=== PATIENT | female | born 1950 | race Caucasian/White ===

== ENCOUNTER 2018-11-08 05:32 | Inpatient (IN) | payer MEDICARE ==
[~2018-11-08 05:32] MED LIST: Buffered Lidocaine 1% SYRIN* 1 ML/SYRINGE INTRADERM ONE; Tranexamic Acid 1,000 MG in NS 0.9% 50 ML* (outpatient use) IV SCH
--- OUTSIDE RECORDS SUMMARY | 2018-11-08 05:36 | XMS REPORT | Continuity of Care Document ---
:1950 External Reference #:[id number] Author Name Mariann Rodriguez Care Team Providers Name Role Phone Lefty Summers MD Primary Care Physician Unavailable Payers Date Identification Numbers Payment Provider Subscriber Expires: 2017 Policy Number: [id number] [employer] Oliver Mandujano PayID: [id number] [address] [address] [place] [address] Effective: 2017 Policy Number: [id number] [employer] Lynsey Mandujano PayID: [id number] [address] [place] [address] Advance Directives Description No Information Available Problems Date Description Provider Status Onset: 06/15/2013 Coronary arteriosclerosis Fred Hernandez M.D., [facility], Active [facility] Onset: 07/20/2013 Mixed hyperlipidemia Fred Hernandez M.D., [facility], Active [facility] Onset: 07/20/2013 Benign essential hypertension [facility] Onset: 07/20/2013 Dyspnea Fred Hernandez M.D., [facility], Active [facility] Onset: 07/20/2013 Chronic ischemic heart disease Fred Hernandez M.D., [facility], Active [facility] Onset: 06/15/2013 Essential hypertension Fred Hernandez M.D., [facility], Active [facility] Onset: 06/15/2013 Difficulty breathing Fred Hernandez M.D., [facility], Active [facility] Family History Date Family Member(s) Observation Comments General Heart Disease General Diabetes Mother Diabetes Mother Hypertension Mother dementia First Brother Diabetes Second Brother Diabetes Maternal Grandmother dementia Social History Type Date Description Comments Sex Unknown Lives With Occupation Retired ETOH Use Denies alcohol use Tobacco Use Start: Unknown Patient has never smoked Smoking Status Reviewed: 10/20/18 Patient has never smoked Exercise Type/Frequency Does not exercise Allergies, Adverse Reactions, Alerts Date Description Reaction Status Severity Comments 06/15/2013 Penicillin throat swell Active 06/15/2013 Erythromycin GI upset Active 06/15/2013 Prednisone suicidal Active 08/31/2013 Sulfa burning sesation, upsets stomach Active 08/31/2013 Latex rash Active Medications Medication Date Status Form Strength Qnty SIG Indications Ordering Provider Rosuvastatin 10/20 Active Tablets 20mg 90tab 1 by mouth Edwar Jenkins Calcium s every day Haney, DO FACC Butalbital-Aspir 10/10 Active Capsules 50-325-40 take 1 as Edwar Jenkins in-Caffeine /2018 mg needed for Haney, migraine, DO FACC maxi Furosemide 06/15 Active Tablets 20mg 90tab 1 tablet 786. s alternating Stefek, day with 1/2 M.D., tablet. ( Pt FAC, has old [facility] medication but not using ) Aspirin Active Tablets DR 81mg 1 po qd Unknown /0000 Nexium Active Capsules 40mg 90cap 1 po qd Unknown /0000 DR wallis Zyrtec Allergy Active Capsules 10mg 30cap 1 po qd Unknown /0000 s Vitamin E-400 Active Capsules 400Unit 1 po qd Unknown /0000 Stool Softener Active Capsules 60cap 1 po qd Unknown /0000 s Nitrostat Active Tablets 0.4mg 25tab one sl q5min Unknown /0000 Sub s up to 3 doses prn ( Pt has old medication but not using ) Ventolin HFA Active Aerosol 108(90Bas 1unit 2 puffs po Unknown /0000 e) s qid prn mcg/Act Atenolol Active 25mg One po daily Unknown /0000 Alprazolam Active Tablets 0.25mg 1/2 tab po Unknown /0000 qd Symbicort Active Aerosol 160-4.5mc Inhale 2 Unknown /0000 g/Act Puffs By Mouth Twice Daily Oxycodone-Acetam Active Tablets 5-325mg Take 1 Or 2 Unknown inophen /0000 Tablets By Mouth Every 6 Hours as Needed For Pain Clobetasol Active Cream 0.05% apply to Unknown Propionate /0000 affected area every day as needed Pseudoephedrine Active Tablets ER 120mg 1 by mouth Unknown HCL ER /0000 12HR twice a day Dilt-XR 05/17 Hx Caps ER 180mg 30cap 1 tab by 24HR s mouth every Stefek, - day M.D., 06/15 [facility], [facility] Pravastatin Hx Tablets 20mg 90tab 1 tablet by Unknown Sodium /0000 s mouth once - daily at 09/18 bedtime Fiorinal Hx Capsules 50-325-40 60cap prn Unknown /0000 mg s - 09/18 Xopenex Hx Nebulizer 1Box as needed Unknown / - 09/18 Omeprazole Hx Capsules 40mg Unknown /0000 DR - 07/19 Rosuvastatin Hx Tablets 10mg Take 1 Unknown Calcium /0000 Tablet By - Mouth Every Levofloxacin Hx Tablets 250mg 5tabs as needed Unknown /0000 - 10/11 Medications Administered in Office Medication Date Status Form Strength Qnty SIG Indications Ordering Provider Depomedrol Administered Injection Dirk Aleyda, 40MG 019 M.D. Celestone 3 mg Administered Injection Layton and 3mg 018 MD Edwin Depomedrol Administered Injection Dirk Aleyda, 80MG 015 M.D. Immunizations Description No Information Available Vital Signs Date Vital Result Comment 10/20/2018 10:45am Height 60 inches 5'0" Weight 170.00 lb w/o shoes Heart Rate 75 /min BP Systolic 160 mmHg rue BP Diastolic 85 mmHg rue BP Systolic Sitting 150 mmHg Lue BP Diastolic Sitting 80 mmHg Lue BP Systolic Standing 145 mmHg rue Reg Cuff BP Diastolic Standing 80 mmHg rue Reg Cuff O2 % BldC Oximetry 97 % BMI (Body Mass Index) 33.2 kg/m2 10/10/2018 10:55am Height 60 inches 5'0" Weight 175.00 lb Heart Rate 89 /min BP Systolic 104 mmHg BP Diastolic 78 mmHg Respiratory Rate 18 /min Body Temperature 98.6 F Pain Level 2 BMI (Body Mass Index) 34.2 kg/m2 09/19/2018 1:32pm Height 60 inches 5'0" Weight 175.00 lb BP Systolic 128 mmHg BP Diastolic 80 mmHg Respiratory Rate 20 /min Body Temperature 97.8 F Pain Level 10 BMI (Body Mass Index) 34.2 kg/m2 12/07/2017 1:34pm Height 60 inches 5'0" Weight 175.00 lb Heart Rate 76 /min BP Systolic 118 mmHg BP Diastolic 62 mmHg Respiratory Rate 12 /min Body Temperature 98.5 F Pain Level 7 BMI (Body Mass Index) 34.2 kg/m2 05/08/2015 8:19am Height 60 inches 5'0" Weight 160.00 lb Pain Level 0 BMI (Body Mass Index) 31.2 kg/m2 04/08/2015 8:14am Height 60 inches 5'0" Weight 160.00 lb Heart Rate 62 /min BP Systolic 158 mmHg BP Diastolic 76 mmHg BMI (Body Mass Index) 31.2 kg/m2 08/31/2013 8:45am Height 60 inches 5'0" Weight 168.00 lb with shoes, no change from 07/20/13 Heart Rate 73 /min BP Systolic Sitting 144 mmHg Lf arm, reg cuff BP Diastolic Sitting 86 mmHg Lf arm, reg cuff BP Systolic Standing 140 mmHg BP Diastolic Standing 86 mmHg Respiratory Rate 16 /min BMI (Body Mass Index) 32.8 kg/m2 07/20/2013 3:31pm Height 60 inches 5'0" Weight 168.00 lb Heart Rate 72 /min BP Systolic Sitting 118 mmHg LA reg cuff BP Diastolic Sitting 74 mmHg LA reg cuff BP Systolic Standing 122 mmHg LA BP Diastolic Standing 76 mmHg LA Respiratory Rate 18 /min BMI (Body Mass Index) 32.8 kg/m2 06/15/2013 4:01pm Height 60 inches 5'0" Weight 167.00 lb Heart Rate 80 /min BP Systolic Sitting 138 mmHg Ra reg cuff BP Diastolic Sitting 84 mmHg Ra reg cuff BP Systolic Standing 132 mmHg Ra BP Diastolic Standing 78 mmHg Ra BMI (Body Mass Index) 32.6 kg/m2 Results Test Date Facility Test Result H/L Range Note Laboratory test 10/20/2018 [facility] B-Type <pending> finding [address] [place] [address] Peptide BNP [phone] Procedures Date Code Description Status 10/20/2018 37907 EKG Tracing & Interpretation Completed 09/19/2018 16355 Inject/Drain Joint/Bursa Major W/O US Completed 12/07/2017 74548 Inject Tendon Sheath Or Ligament Aponeurosis Eg Plantar Completed Fascia 04/08/2015 76411 Inject/Drain Joint/Bursa Major W/O US Completed 05/03/2013 21660 Treadmill Interp/Report Only Completed 05/03/2013 12157 Stress Test Supervsn W/Out I/R Completed 04/12/2013 34557 ECHO Transthoracic, Real-Time 2D With Doppler And Color Completed Flow 03/14/2013 73388 Left Heart Cath. Incl S/I Coronaries, Angio S/I V Gram If Completed Done 03/14/2013 57216 Treadmill Interp/Report Only Completed 03/14/2013 88173 Stress Test Supervsn W/Out I/R Completed 03/14/2013 68301 EKG, Interpretation Only Completed 08/15/2007 63797 ECHO/Stress Completed 08/15/2007 26274 ECHO/Stress Completed 08/15/2007 66547 Stress Test Completed 08/15/2007 56927 Stress Test Completed 08/15/2007 30149 Stress Test Completed Encounters Type Date Location Provider Dx Diagnosis Office Visit 10/10/2018 [facility] Manyard, M17.11 Unilateral primary 10:30a [facility] osteoarthritis, right C.M.A. knee Office Visit 09/19/2018 [facility] Maynard, M17.11 Unilateral primary 1:30p [facility] osteoarthritis, right C.M.A. knee Office Visit 12/07/2017 [facility] Pineda M65.311 Trigger thumb, right 1:15p [facility] thumb C.M.A. Office Visit 05/08/2015 [facility]nard, 715.96 Osteoarthrosis Unspec 8:15a [facility] Ornelas Or Localized C.M.A. Lower Leg Office Visit 04/08/2015 [facility], 836.0 Dislocation Knee Tear 8:00a [facility] Of Medial Cartilage C.M.A. Or Meniscus Curren 715.36 Osteoarthrosis Localzd Not Spec Prime Or 2Ndy Lower Leg Office Visit 08/31/2013 8:45a [facility] Fred Hernandez, 414.9 Ischemic Heart Of [facility] AT [facility] M.D., FAC, Disease Chronic [facility] Unspec 401.1 Hypertension Benign 272.2 Hyperlipidemia Mixed Office Visit 07/20/2013 3:15p [facility] Fred Hernandez, 414.9 Ischemic Heart Of [facility] M.D., FAC, Disease Chronic [facility] Unspec 786.05 Shortness Of Breath 401.1 Hypertension Benign 272.2 Hyperlipidemia Mixed Office Visit 06/15/2013 3:45p [place] Fred Hernandez, 786.09 Dyspnea & Cardiology Of M.D., FACC, Respiratory [facility] Abnormalities Other 401.9 Hypertension Unspec 414.01 Coronary Atherosclerosis [place] Office Visit 05/17/2013 4:00p [place] Fred Hernandez, 786.09 Dyspnea & Cardiology Of M.D., FAC, Respiratory [facility] AT [facility] Abnormalities Other 401.9 Hypertension Unspec Office Visit 04/24/2013 11:45a [place] Fred Hernandez, 786.09 Dyspnea & Cardiology Of M.D., FAC, Respiratory [facility] AT [facility] Abnormalities Other Office Visit 03/22/2013 3:15p [place] Fred Hernandez, 401.9 Hypertension Unspec Cardiology Of M.D., FACC, [facility] AT [facility] 493.90 Asthma Unspec W/O Status Asthmaticus Office Visit 2013 8:42a [facility] Earnest Hurst, 786.50 [facility] M.DSun Unspec Hospitalists 401.9 Hypertension Unspec 493.10 Asthma Intrinsic Unspecified Office Visit 03/15/2013 8:42a [facility] Earnest Hurst, 786.50 [facility],pc M.DSun Unspec Hospitalists 401.9 Hypertension Unspec 493.10 Asthma Intrinsic Unspecified Office Visit 03/14/2013 9:06a [facility] Arnie Funes 786.50 [facility] Guadalupe Unspec 786.09 Dyspnea & Respiratory Abnormalities Other 401.1 Hypertension Benign Office Visit 03/13/2013 8:41a [facility] Rodrigo Vásquez 786.50 [facility],pc N.P. Unspec Hospitalists 401.9 Hypertension Unspec 493.10 Asthma Intrinsic Unspecified Plan of Treatment Future Appointment(s):10/26/2018 10:15 am - Edwar Haney, DO FAC at [facility]11/08/2018 7:30 am - Idris Maynard M.D. at [facility].A.11/21/2018 9:15 am - Idris Maynard M.D. at [facility].10/20/2018 - Edwar Haney DO FACCI25.84 Coronary atherosclerosis due to calcified coronary lesionComments:Your most recent LDL (bad cholesterol) was 96. In someone with coronary artery disease, this shouldbe less than 70 at a maximum. I increased your rosuvastatin from 10 to 20 mg once a day. You can have refills and follow up blood work through Dr. Summers's office. Don't take any fiorcet for 24 hoursprior to the stress testFollow up:please schedule stress test with me on 10/26/2018 f/u PRNZ01.810 Encounter for preprocedural cardiovascular examinationNew Orders:Stress Test, Exercise Nuclear, Scheduled: 10/26/18R06.02 Shortness of breath
--- OUTSIDE RECORDS SUMMARY | 2018-11-08 05:37 | XMS REPORT | Continuity of Care Document ---
:1950 External Reference #:[id number] Author Name Ariadna Potts Care Team Providers Name Role Phone Lefty Summers MD Primary Care Physician Unavailable Payers Date Identification Numbers Payment Provider Subscriber Expires: 2017 Policy Number: [id number] [employer] Oliver Mandujano PayID: [id number] [address] [address] [place] [address] Effective: 2017 Policy Number: [id number] [employer] Lynsey Mandujano PayID: [id number] [address] [place] [address] Advance Directives Description No Information Available Problems Date Description Provider Status Onset: 06/15/2013 Coronary arteriosclerosis Fred Hernandez M.D., [facility], Active [facility] Onset: 07/20/2013 Mixed hyperlipidemia Fred Hernandez M.D., [facility], Active [facility] Onset: 07/20/2013 Benign essential hypertension Fred Hernandez M.D., [facility], Active [facility] Onset: 07/20/2013 Dyspnea Fred Hernandez M.D., [facility], Active [facility] Onset: 07/20/2013 Chronic ischemic heart disease Fred Hernandez M.D., [facility], Active [facility] Onset: 06/15/2013 Essential hypertension Fred Hernandez M.D., [facility], Active [facility] Onset: 06/15/2013 Difficulty breathing Fred Hernandez M.D., [facility], Active [facility] Family History Date Family Member(s) Observation Comments General Heart Disease General Diabetes Social History Type Date Description Comments Sex Unknown Lives With Occupation Retired ETOH Use Denies alcohol use Tobacco Use Start: Unknown Patient has never smoked Smoking Status Reviewed: 10/10/18 Patient has never smoked Exercise Type/Frequency Does not exercise Allergies, Adverse Reactions, Alerts Date Description Reaction Status Severity Comments 06/15/2013 Penicillin Active 06/15/2013 Erythromycin Active 06/15/2013 Prednisone Active 08/31/2013 Sulfa burning sesation, upsets stomach Active 08/31/2013 Latex rash Active Medications Medication Date Status Form Strength Qnty SIG Indications Ordering Provider Furosemide 06/15/ Active Tablets 20mg 90tab 1 tablet 786.09 Fred 2012 s alternating , with 08/31 M.DSun, tablet. [facility], [facility] Aspirin / Active Tablets DR 81mg 1 po qd Unknown 0000 Nexium / Active Capsules DR 40mg 90cap 1 po qd Unknown 0000 s Zyrtec Allergy / Active Capsules 10mg 30cap 1 po qd Unknown 0000 s Vitamin E-400 / Active Capsules 400Unit 1 po qd Unknown 0000 Stool Softener / Active Capsules 60cap 1 po qd Unknown 0000 s Nitrostat / Active Tablets Sub 0.4mg 25tab one sl q5min Unknown 0000 s up to 3 doses prn Ventolin HFA / Active Aerosol 108(90Bas 1unit 2 puffs po Unknown 0000 e) s qid prn mcg/Act Atenolol / Active 25mg One po daily Unknown 0000 Alprazolam / Active Tablets 0.25mg 1/2 tab po Unknown 0000 qd Symbicort / Active Aerosol 160-4.5mc Inhale 2 Unknown 0000 g/Act Puffs By Mouth Twice Daily Oxycodone-Acet / Active Tablets 5-325mg Take 1 Or 2 Unknown aminophen 0000 Tablets By Mouth Every 6 Hours as Needed For Pain Rosuvastatin / Active Tablets 10mg Take 1 Unknown Calcium 0000 Tablet By Mouth Every Day Dilt-XR 05/17/ Hx Caps ER 180mg 30cap 1 tab by Fred 2012 - 24HR s mouth every Stefek, M.DSun, 2012 [facility], [facility] Pravastatin / Hx Tablets 20mg 90tab 1 tablet by Unknown Sodium 0000 - s mouth once 09/18/ daily at 2019 bedtime Fiorinal / Hx Capsules 50-325-40 60cap prn Unknown 0000 - mg s 2018 Xopenex / Hx Nebulizer 1Box as needed Unknown - 2018 Omeprazole / Hx Capsules DR 40mg Unknown - 2012 Medications Administered in Office Medication Date Status Form Strength Qnty SIG Indications Ordering Provider Depomedrol Administered Injection Dirk Aleyda, 40MG 019 M.D. Celestone 3 mg Administered Injection Layton and 3mg 018 MD Ayala Pineda Administered Injection Dirk Aleyda, 80MG 015 M.D. Immunizations Description No Information Available Vital Signs Date Vital Result Comment 10/10/2018 10:55am Height 60 inches 5'0" Weight [...] BMI (Body Mass Index) 32.6 kg/m2 Results Description No Information Available Procedures Date Code Description Status 09/19/201811927 Inject/Drain Joint/Bursa Major W/O US Completed 12/07/2017 19963 Inject Tendon Sheath Or Ligament Aponeurosis Eg Plantar Completed Fascia 04/08/201534124 Inject/Drain Joint/Bursa Major W/O US Completed 05/03/2013 89679 Treadmill Interp/Report Only Completed 05/03/2013 90836 Stress Test Supervsn W/Out I/R Completed 04/12/2013 07988 ECHO Transthoracic, Real-Time 2D With Doppler And Color Completed Flow 03/14/2013 28414 Left Heart Cath. Incl S/I Coronaries, Angio S/I V Gram If Completed Done 03/14/2013 38070 Treadmill Interp/Report Only Completed 03/14/2013 75498 Stress Test Supervsn W/Out I/R Completed 03/14/2013 22850 EKG, Interpretation Only Completed 08/15/2007 77244 ECHO/Stress Completed 08/15/2007 16420 ECHO/Stress Completed 08/15/2007 68221 Stress Test Completed 08/15/2007 73711 Stress Test Completed 08/15/2007 03888 Stress Test Completed Encounters Type Date Location Provider Dx Diagnosis Office Visit 09/19/2018 [facility] Maynard, M17.11 Unilateral primary 1:30p [facility] M.D. osteoarthritis, right C.M.A. knee Office Visit 12/07/2017 [facility] Pineda, M65.311 Trigger thumb, right 1:15p [facility] C.M.A. Office Visit 05/08/2015 [facility] Maynard, 715.96 Osteoarthrosis Unspec 8:15a [facility] Genlzd Or Localized C.M.A. Lower Leg Office Visit 04/08/2015 [facility] Maynard, 836.0 Dislocation Knee Tear 8:00a [facility] Of Medial Cartilage C.M.A. Or Meniscus Curren 715.36 Osteoarthrosis Localzd Not Spec Prime Or 2Ndy Lower Leg Office Visit 08/31/2013 8:45a [facility] Fred Hernandez, 414.[address] [facility] M.Yolis, [facility], Disease Chronic [facility] Unspec 401.1 Hypertension Benign 272.2 Hyperlipidemia Mixed Office Visit 07/20/2013 3:15p [facility] Fred Hernandez, 414.[address] [facility], [facility], Disease Chronic [facility] Unspec 786.05 Shortness Of Breath 401.1 Hypertension Benign 272.2 Hyperlipidemia Mixed Office Visit 06/15/2013 3:45p Gabe Hernandez, 786.09 Dyspnea & Card[facility], FAC, Respiratory [facility] Abnormalities Other 401.9 Hypertension Unspec 414.01 Coronary Atherosclerosis [place] [facility] [place] Office Visit 05/17/2013 4:00p Gabe Hernandez, 786.09 Dyspnea & Cardiology Of [facility], FAC, Respiratory [facility] Abnormalities Other 401.9 Hypertension Unspec Office Visit 04/24/2013 11:45a Gabe Hernandez 786.09 Dyspnea & Card[facility], FAC, Respiratory [facility] Abnormalities Other Office Visit 03/22/2013 3:15p [facility] Hernandez, 401.9 Hypertension Unspec [facility], FAC, Associate Music Professor AT [facility] 493.90 Asthma Unspec W/O Status Asthmaticus Office Visit 2013 8:42a [facility] Earnest Hurst, 786.50 [facility],austen [place] Unspec Hospitalists 401.9 Hypertension Unspec 493.10 Asthma Intrinsic Unspecified Office Visit 03/15/2013 8:42a [facility] Earnest Hurst, 786.50 [facility]oc,austen [place] Unspec Hospitalists 401.9 Hypertension Unspec 493.10 Asthma Intrinsic Unspecified Office Visit 03/14/2013 9:06a [facility] Arnie Funes 786.50 [facility] Guadalupe Unspec 786.09 Dyspnea & Respiratory Abnormalities Other 401.1 Hypertension Benign Office Visit 03/13/2013 8:41a [facility] Rodrigo [place], 786.50 [facility] Chest Assoc,pc N.P. Unspec Hospitalists 401.9 Hypertension Unspec 493.10 Asthma Intrinsic Unspecified Plan of Treatment Future Appointment(s):11/08/2018 7:30 am - Idris Maynard M.D. at [facility]/21/2018 9:15 am - Idris Maynard M.D. at [facility]10/10/2018 - Idris Maynard M.D.M17.11 Unilateral primary osteoarthritis, right knee
[2018-11-08] MEDS ORDERED: Lactated Ringers 1000 ML Bag* 1,000 ML IV SCH (06:00)
[2018-11-08] MEDS ORDERED: Clindamycin 900 MG/D5W BAG(*) 900 MG/50 ML BAG IVPB ONE (06:14)
[2018-11-08 06:47] LABS: Urine Appearance Clear; Urine Bacteria Absent (Absent); Urine Bilirubin Negative (Negative); Urine Blood Negative (Negative); Urine Color Yellow; Urine Glucose Negative (Negative); Urine Ketones Negative (Negative); Urine Nitrite Negative (Negative); Urine Protein Negative (Negative); Urine Red Blood Cell Absent (Absent); Urine Specific Gravity 1.014 (1.010-1.030); Urine Urobilinogen Negative (Negative); Urine White Blood Cell Trace(0-5/hpf) (Absent)
[2018-11-08] MEDS ORDERED: Bupivacaine 0.5% W/EPI SDV* 30 ML VIAL ONE (07:10)
[2018-11-08] MEDS ORDERED: Midazolam* 1 MG/ML 5 ML VIAL (5 MG) ONE (07:21)
[2018-11-08] MEDS ORDERED: fentaNYL* 50 MCG/ML 2 ML VIAL (100 MCG VIAL) ONE (07:47)
[2018-11-08] MEDS ORDERED: Propofol* 10 MG/ML 20 ML BTL ONE (08:16)
[2018-11-08] MEDS ORDERED: DiMENhydriNATE IV* 50 MG/ML VIAL IV PUSH PRN (08:45)
[2018-11-08] MEDS ORDERED: fentaNYL* 50 MCG/ML 2 ML VIAL (100 MCG VIAL) IV PRN (08:45)
[2018-11-08] MEDS ORDERED: HYDROmorphone INJ1* 1 MG/ML SYRINGE IV PRN (08:45)
[2018-11-08] MEDS ORDERED: Naloxone* 0.4 MG/ML 1 ML VIAL IV PRN (08:45)
[2018-11-08] MEDS ORDERED: oxyCODONE TAB* 5 MG TAB PO PRN ×2 (08:45→23:00)
[2018-11-08] MEDS ORDERED: Ondansetron INJ* 2 MG/ML VIAL IV PRN (08:45)
[2018-11-08] MEDS ORDERED: Scopolamine 1.5 mg* PATCH TRANSDERM PRN (08:45)
[2018-11-08] MEDS ORDERED: Ketorolac INJ* 30 MG/ML 1 ML VIAL ONE (10:12)
[2018-11-08] MEDS ORDERED: Midazolam* 1 MG/ML 2 ML VIAL (2 MG) ONE (10:20)
[2018-11-08] MEDS ORDERED: Cyclobenzaprine TAB* 10 MG PO PRN (10:55)
[2018-11-08] MEDS ORDERED: diPHENhydraMINE IV* 50 MG/ML 1 ml VIAL (BENADRYL) IV PRN (10:55)
[2018-11-08] MEDS ORDERED: diPHENhydraMINE PO* 25 MG PO PRN (10:55)
[2018-11-08] MEDS ORDERED: Ondansetron ODT TAB* 4 MG PO PRN (10:55)
[2018-11-08] MEDS ORDERED: Magnesium Hydroxide LIQ* 30 ML UDC PO PRN (10:55)
[2018-11-08] MEDS ORDERED: Docusate CAP* 100 MG PO PRN (10:55)
[2018-11-08] MEDS ORDERED: Clobetasol 0.05% OINT* 30 GM TUBE TOPICAL PRN (11:03)
[2018-11-08] MEDS ORDERED: Butalb/Acetamin/Caff TAB* 1 TAB PO PRN (11:03)
--- NOTE | 2018-11-08 13:23 | OP ---
CC: Dr. Summers * DATE OF OPERATION: 11/08/18 - ROOM #341 DATE OF : 52 SURGICAL CARE: Right knee. SURGEON: Idris Maynard MD. ASSISTANTS: Dr. Palma and Tri Jennings, instructor adjunct surgical technician. ANESTHESIOLOGIST: Cruzito Barrera MD. ANESTHESIA: Right adductor canal block and spinal anesthetic with IV sedation. PRE-OP DIAGNOSIS: Severe arthritis of the right knee with varus malalignment. POST-OP DIAGNOSIS: Severe arthritis of the right knee with varus malalignment. OPERATIVE PROCEDURE: Right total knee replacement. COMPONENTS UTILIZED: Glenna Persona knee all components cemented. A size 4 femur, a size 32 patella, and a size C tibia with a 10 articular surface. There is an extension on the tibial component for stability. COMPLICATIONS: There were no complications. DRAINS: 2 drains, right knee at the end of the case. ESTIMATED BLOOD LOSS: 200 mL. REPLACEMENT: Crystalloid fluids. OPERATIVE INDICATION: Severe knee arthritis. She has had it for years, has been no longer responsive to nonoperative care and a knee replacement was recommended. DESCRIPTION OF PROCEDURE: The patient was evaluated in the holding area where we marked the correct knee, and Dr. Barrera did the block in the holding area and then she was brought into the operating room and placed on the operating room table and given the spinal anesthetic, returned to the supine position. A Muse catheter was inserted. The right proximal thigh was wrapped with a tourniquet and carefully sealed off. The right knee was given a preliminary chlorhexidine prep and then the final ChloraPrep from the tourniquet to the tips of the toes. After prepping, draping, and sealing off, we did our universal protocol time-out confirming Lynsey Schiller and plan for right total knee replacement. We all agreed and we proceeded. Most of the surgical care was done without the tourniquet with the hip and knee acutely flexed and the right foot resting on a padded foot piece. The skin incision went from 2 fingerbreadths proximal to the superior pole of the patella to the medial aspect of the tibial tubercle. We went into the knee medial parapatellar dividing the quad tendon at the junction of the rectus femoris and the vastus medialis staying as close to vastus medialis as possible and going 3 to 4 cm proximal to the superior pole of the patella and the tibia. The anteromedial soft tissues were elevated subperiosteally going around to the deep MCL and then to the posteromedial corner of the knee. The knee had complete eburnation of bone, medial femoral condyle and medial tibial plateau. Some wearing of the medial tibial plateau. Osteophytes, medial tibial plateau, intercondylar notch and little bit laterally. The medial meniscus had a displaced flap tear anteriorly. The remains of the medial meniscus were removed anteriorly and later in the case posteriorly. Peripatellar synovectomy was completed at the distal anterior femur, was exposed subperiosteally for referencing and measuring. The intercondylar osteophytes were removed and the ACL and PCL were uplifted from their femoral origins. The tibia was made so that it could be subluxated forward from under the femur. The lateral meniscus was carefully excised. Great care was taken while working posteriorly and the posterior cruciate ligament was also excised. The proximal tibial cut was made first and this cut was made so that we would remove 2 to 3 mm of bone medially and up to a centimeter laterally and have a tibial surface that would have a slight posterior slope and be perpendicular to the long axis of the tibia. The femoral intramedullary drill was then utilized. The femoral canal was suctioned to discourage embolization and the distal femoral cutting guide was inserted on #1 with 6 degrees of valgus and the distal femoral cut was completed. The extension gap seemed slightly tight. The femur was measured for a size 5, and the anterior, posterior, chamfering cuts were completed for the size 5. We then finished removal of posterior horn lateral meniscus, the PCL, osteophytes on the condyles posteriorly, and the remains of the medial meniscus and we were tight in flexion with 10 blocks, so we recut the femur to a size 4, and we were still a little tight in flexion and extension, so we removed 2 more millimeters from the tibia. At this stage, we had nice ligamentous balance in extension and 90 degrees of flexion with a 10- mm block. The femur was completed for the size 4 with the intercondylar cutout, anchoring holes. The femur was irrigated with saline and suctioned x6 and bone plug inserted. The tibia was then completed for a size C and knee was articulated and extended with a C tibia, 10 articular surface, and 4 femur with full knee extension, stable ligaments in extension, and stable ligaments in 90 degrees of flexion. The patella was cut flat. A 32 was chosen. Three drill holes were made. These were undercut with a curette and in the subchondral bone part of the patella, a single small drill hole was made to accept cement. A lateral release was not necessary. The knee was then assembled with all the trial components with full knee extension, stable ligaments, nice patellar tracking, and stable ligaments in 90 degrees of flexion. The final components were opened up. The leg was exsanguinated. The tourniquet elevated to 275. The knee was then cleaned in extension with pulsed saline. Careful hemostasis achieved. The knee was cleaned in flexion with retractors in place. All bony surfaces were cleaned and then carefully dried. The cement was mixed and the components were cemented into position, patella followed by tibia, followed by femur. Each was impacted. Excess cement was removed, and the knee was articulated and extended during the final hardening. Once the cement was hard, rechecked posteriorly for retained cement fragments and bleeding points. Careful hemostasis was achieved. We irrigated during closure with the saline irrigation solution. The quad mechanism reapproximated with interrupted #1 Vicryl sutures in aneiyi-jo-ckggs fashion, the same with the medial retinaculum. More distally, we used 0 Vicryl and then on the deep bursa fascia, we used 0 Vicryl and then 3-0 Vicryl on the superficial subcu and gregory on the skin. As stated, we irrigated several times during closure with the saline. The drains were brought out to superolateral suprapatellar pouch. The knee was completely extended and flexed past 125 degrees several times during the closure. After gregory, then we washed and dried. The dorsalis pedis pulse was noted to be 2+. The dressing applied with Betadine-soaked release on the surgery and the 2 drain sites, sterile gauze, sterile Webril, cryotherapy cuff, ABD pads, and a 6-inch Joshua bandage loosely applied. The patient was returned to the recovery room in stable and satisfactory condition having tolerated the procedure very well. [id number]/[facility] #: [id number] JESSA
[2018-11-08] MEDS: Morphine 4 MG/ML VIAL (1 ml) 4 MG/ML VIAL IV PRN ×3 (14:52→22:59)
[2018-11-08] MEDS: Acetaminophen TAB* 325 MG PO SCH (14:54)
[2018-11-08] MEDS: oxyCODONE TAB* 5 MG TAB PO PRN ×2 (14:55→20:07)
[2018-11-08] MEDS: Clindamycin 600 MG IVPREMIX(* 600 MG/50 ML SDV IV SCH (15:56)
--- NOTE | 2018-11-08 16:20 | PN ---
Progress Note - Progress Note Date of Service: 11/08/18 Note: Pt seen at bedside POD [address] Maynard. She feels well without CP, SOB, dizziness or nausea. Dressing CDI, thigh is soft, DF/PF intact, DP2+, sensation intact to light touch distally.
--- NOTE | 2018-11-08 17:33 | CONS ---
[facility] MEDICINE CONSULTATION REPORT: DATE OF CONSULT: 11/08/18 PROVIDER: Maura Cruz NP ATTENDING PHYSICIAN: Dr. Maynard. CONSULTING PHYSICIAN: Dr. Devante Lan (dictated by Maura Cruz NP). REASON FOR CONSULT: Co-management of chronic medical conditions. HISTORY OF PRESENT ILLNESS: Ms. Mandujano is a 68-year-old female with a past medical history significant for chronic ischemic heart disease, hypertension, CAD, hyperlipidemia, and shortness of breath, who presented to the hospital today for an elective right total knee arthroplasty with Dr. Maynard. Please see dictated H and P from FILI Balderas. In brief, the patient had ongoing pain of the right knee, failed conservative measures and therefore opted for a right total knee arthroplasty with Dr. Maynard. In the immediate postoperative period, the patient has no complaints other than mild right knee pain. Due to her history of CAD, hypertension, and hyperlipidemia, we were asked to see her for consultation. PAST MEDICAL HISTORY: 1. Chronic ischemic heart disease. 2. Hypertension. 3. CAD. 4. Hyperlipidemia. 5. Shortness of breath. PAST SURGICAL HISTORY: 1. Colon resection. 2. Rotator cuff repair. 3. Right eye melanoma removal. 4. Cardiac catheterization. HOME MEDICATIONS: 1. Atenolol 25 mg p.o. q.a.m. 2. Vitamin E 400 units p.o. q.a.m. 3. Stool softener 1 tab p.o. daily. 4. Rosuvastatin 20 mg p.o. daily. 5. Omeprazole 20 mg p.o. q.a.m. 6. Clobetasol ointment 0.05 topically daily p.r.n. 7. Zyrtec 10 mg p.o. q.a.m. 8. Butalbital/aspirin/caffeine 50/325/40 one tablet p.o. once as needed for headache. 9. Symbicort 2 puffs b.i.d. 10. Aspirin 81 mg p.o. q.a.m. 11. Albuterol HFA inhaler 2 puffs q.6 hours as needed. 12. Alprazolam 0.25 mg p.o. daily as needed for anxiety. ALLERGIES: She has an allergy to PENICILLIN, PREDNISONE, ERYTHROMYCIN, LATEX, DEMEROL, and SULFA DRUGS. FAMILY HISTORY: Mother with a history of hypertension. Father, mother and brother with a history diabetes. No reported history of cancer. SOCIAL HISTORY: Denies any tobacco. Does report occasional alcohol use. Denies any illicit drug use. She is . Surrogate decision maker in the event she is unable to make her own decision is her , Oliver Mandujano. His phone number is [phone]. She is a full code. REVIEW OF SYSTEMS: She denies any fever, unintended weight loss, chest pain, edema, cough, hemoptysis, or shortness of breath. Denies any nausea, vomiting, diarrhea, or abdominal pain. Denies any gross hematuria or dysuria. Denies any focal weakness or sensory losses. Denies any visual complaints, dysphagia, arthralgias, myalgias, rashes, lesions, psychosis, or anxiety. PHYSICAL EXAM: General: At this time, Ms. Mandujano is resting in her bed. She is alert and oriented x3. She does not appear to be in any acute distress. HEENT: Head is atraumatic, normocephalic. Eyes: EOMs are intact. Sclerae anicteric and not pale. Oral mucosa appeared to be moist. Neck is supple. Lungs are clear to auscultation bilaterally. No wheezes, rales, or rhonchi. Cardiac: S1, S2. Regular rate and rhythm. No murmurs, rubs, or gallops. Abdomen is soft and nontender. Bowel sounds are present x4. Extremities: There is no cyanosis or edema. She does have a dressing that is dry and intact to her right knee. Pedal pulses are +2 bilaterally. Skin: She has a dressing that is dry and intact to the right knee. DIAGNOSTIC STUDIES/LAB DATA: Preoperatively, urine was within normal limits. WBCs from 10/25/18 were 8.4, RBCs 4.86, hemoglobin 14.4, hematocrit was 43, platelet count was 258. INR was 0.92 on 10/25/18. Sodium 140, potassium 4.6, chloride 103, carbon dioxide 30, anion gap was 7, BUN was 13, creatinine 0.57. IMPRESSION AND PLAN: Ms. Mandujano is a 68-year-old female with a past medical history significant for hypertension, hyperlipidemia, coronary artery disease, chronic ischemic heart disease, and shortness of breath, who presented for an elective right total knee arthroplasty with Dr. Maynard. In the immediate postoperative period, she has no complaints. Our recommendations are as follows : 1. Status post right total knee arthroplasty. Management per Orthopedics. PT/ OT per Orthopedics. DVT prophylaxis per Orthopedics. Pain management per Orthopedics. 2. Coronary artery disease. Continue on atenolol 25 mg p.o. daily and rosuvastatin 20 mg p.o. daily. She should resume aspirin 81 mg when able. 3. Hypertension. I will continue on her atenolol 25 mg p.o. daily. 4. Hyperlipidemia. She should continue on rosuvastatin 20 mg p.o. daily. 5. Shortness of breath. She should continue her Ventolin and Symbicort inhalers as previously prescribed. 6. Gastroesophageal reflux disease. She should continue on Nexium 40 mg p.o. daily. 7. DVT prophylaxis: Per Orthopedics. 8. Code status: She is a full code. 9. Fluids, electrolytes, and nutrition: I would recommend a heart-healthy, caffeine okay diet. TIME SPENT: Time spent on this consultation was 45 minutes, more than half that time was spent at the bedside reviewing events leading thus far to her hospitalization, performing physical exam, and reviewing my plan of care. I have discussed this with my attending, Dr. Devante Lan; he is in agreement with my plan. MAURA CRUZ, EYAL [id number]/[facility] #: [id number] JESSA
[2018-11-08] MEDS: Mometasone/Formoter 200/5 MDI INH SCH (20:06)
[2018-11-08] MEDS: Magnesium Hydroxide LIQ* 30 ML UDC PO SCH (20:07)
[2018-11-08] MEDS: Lactated Ringers 1000 ML Bag* 1,000 ML IV SCH (22:46)
[2018-11-08] MEDS: Ondansetron INJ* 2 MG/ML VIAL IV PRN (22:47)
[2018-11-09] MEDS: Acetaminophen TAB* 325 MG PO SCH ×4 (00:28→22:27)
[2018-11-09] MEDS: Clindamycin 600 MG IVPREMIX(* 600 MG/50 ML SDV IV SCH ×2 (00:42→08:22)
[2018-11-09] MEDS ORDERED: Morphine 4 MG/ML VIAL (1 ml) 4 MG/ML VIAL IV PRN (02:16)
[2018-11-09] MEDS: Morphine 4 MG/ML VIAL (1 ml) 4 MG/ML VIAL IV PRN (04:04)
[2018-11-09] MEDS: oxyCODONE TAB* 5 MG TAB PO PRN ×4 (05:46→21:24)
[2018-11-09 06:07] LABS: Hematocrit 33 % (35-47); Hemoglobin 10.9 g/dl (12.0-16.0); Mean Platelet Volume 7.3 fL (7.4-10.4); Platelet Count 226 10^3/ul (150-450)
[2018-11-09 06:17] LABS: Calcium 8.6 mg/dL (8.6-10.3); Potassium 4.2 mmol/L (3.5-5.0)
[2018-11-09 06:23] LABS: BUN/Creatinine Ratio 21.2 (8-20); EGFR African American 142.3 (>60); EGFR Non-African American 117.6 (>60)
--- NOTE | 2018-11-09 08:04 | PN ---
Progress Note - Progress Note Date of Service: 11/09/18 Note: POD 1 VSStable. Hct 33%. X-ray right knee post op all OK. I and O 3705/ 1905. She is nauseated and vomited. Breathing easily and spirits are OK. Alert and cooperative. Dressing loosened and rewrapped. Exercises done right hip knee and ankle. She can almost leg raise. Stable. Plans: Up with walker, drinking, and incentive spirometer.
[2018-11-09] MEDS: Mometasone/Formoter 200/5 MDI INH SCH (08:25)
[2018-11-09] MEDS: Magnesium Hydroxide LIQ* 30 ML UDC PO SCH ×2 (08:25→21:14)
[2018-11-09] MEDS: Ondansetron INJ* 2 MG/ML VIAL IV PRN (08:30)
[2018-11-09] MEDS ORDERED: Pantoprazole TAB * 40 MG TAB PO SCH (09:00)
[2018-11-09] MEDS: Lactated Ringers 1000 ML Bag* 1,000 ML IV SCH (09:48)
[2018-11-09] MEDS: OMEPRAZOLE 20 MG PO SCH (09:48)
[2018-11-09] MEDS ORDERED: Scopolamine 1.5 mg* PATCH TRANSDERM SCH (10:00)
[2018-11-09] MEDS: Ketorolac INJ* 30 MG/ML 1 ML VIAL IV PUSH PRN ×2 (10:01→16:50)
[2018-11-09] MEDS: Aspirin TAB* 325 MG PO SCH (11:14)
[2018-11-09] MEDS: Atorvastatin* 40 MG TAB PO SCH (11:15)
[2018-11-09] MEDS: PTO:Budesonide/Formote 160/4.5(NF) MDI INH SCH ×2 (11:15→16:46)
[2018-11-09] MEDS: Cetirizine* 10 MG TAB PO SCH (11:15)
[2018-11-09] MEDS: Atenolol TAB* 25 MG PO SCH (11:15)
[2018-11-09] MEDS: Vitamin E CAP* 400 UNIT PO SCH (11:16)
[2018-11-09] MEDS ORDERED: NS 0.9% 500 ML* 500 ML IV ONE (11:25)
--- NOTE | 2018-11-09 11:56 | PN ---
Progress Note - Progress Note Date of Service: 11/09/18 SOAP: Subjective: []Pt seen at bedside POD [address] Maynard. She had a difficult night with pain and vomiting. This morning since removal of guerra she has urinate 75 ml. Denies CP, SOB, dizziness or nausea. Objective: []General: NAD RLE: Right knee dressing CDI, drains were removed by Dr Maynard this morning without complication. Thigh is soft, DF/PF intact, DP2+, working towards straight leg raise. Calves supple and nontender without erythema, edema or palpable cords Assessment: [] POD 1 sp RTK Plan: []WBAT PT/OT 500 ml NS ordered due to 700 ml emesis, low urine output Scopolamine patch for N/V Toradol 30 mg q 6 hr PRN to help with pain control, unable to tolerate PO pain meds due to vomiting. Will resume PO pain meds when N/V has subside Recheck sodium tomorrow Vital Signs Temp 98.3 F 11/09/18 07:24 Pulse 77 11/09/18 07:24 Resp 16 11/09/18 11:14 BP 136/63 11/09/18 07:24 Pulse Ox 97 11/09/18 09:00 Intake & Output 11/08/18 11/09/18 11/09/18 18:59 06:59 18:59 Intake Total 1950 1755 1390 Output Total 1240 665 850 Balance 710 1090 540 Intake: IV Fluids 1850 1035 1000 ABX - CLINDAMYCIN 55 CLINDAMYCIN 900 MG 50 LR 0582 815 0291 IVPB 110 ABX - CLINDAMYCIN 110 Oral 100 720 280 Output: Hemovac Amount #1 140 250 Urine 15 150 Guerra 1100 400 Emesis 700 Other: Estimated Void Small # Voids 1 Laboratory Last Values Hgb 10.9 g/dl (12.0-16.0) L 11/09/18 05:58 Hct 33 % (35-47) L 11/09/18 05:58 Plt Count 226 10^3/ul (150-450) 11/09/18 05:58 MPV 7.3 fL (7.4-10.4) L 11/09/18 05:58 Sodium 133 mmol/L (135-145) L 11/09/18 05:58 Potassium 4.2 mmol/L (3.5-5.0) 11/09/18 05:58 Chloride 101 mmol/L (101-111) 11/09/18 05:58 Carbon Dioxide 27 mmol/L (22-32) 11/09/18 05:58 Anion Gap 5 mmol/L (2-11) 11/09/18 05:58 BUN 11 mg/dL (6-24) 11/09/18 05:58 Creatinine 0.52 mg/dL (0.51-0.95) 11/09/18 05:58 Est GFR ( Amer) 142.3 (>60) 11/09/18 05:58 Est GFR (Non-Af Amer) 117.6 (>60) 11/09/18 05:58 BUN/Creatinine Ratio 21.2 (8-20) H 11/09/18 05:58 Glucose 131 mg/dL (70-100) H 11/09/18 05:58 Calcium 8.6 mg/dL (8.6-10.3) 11/09/18 05:58 Urine Color Yellow 11/08/18 05:55 Urine Appearance Clear 11/08/18 05:55 Urine pH 6.0 (5-9) 11/08/18 05:55 Ur Specific [place] 1.014 (1.010-1.030) 11/08/18 05:55 Urine Protein Negative (Negative) 11/08/18 05:55 Urine Ketones Negative (Negative) 11/08/18 05:55 Urine Blood Negative (Negative) 11/08/18 05:55 Urine Nitrate Negative (Negative) 11/08/18 05:55 Urine Bilirubin Negative (Negative) 11/08/18 05:55 Urine Urobilinogen Negative (Negative) 11/08/18 05:55 Ur Leukocyte Esterase Negative (Negative) 11/08/18 05:55 Urine WBC (Auto) Trace(0-5/hpf) (Absent) 11/08/18 05:55 Urine RBC (Auto) Absent (Absent) 11/08/18 05:55 Urine Bacteria Absent (Absent) 11/08/18 05:55 Urine Glucose Negative (Negative) 11/08/18 05:55 Blood Type O Positive 11/08/18 06:35 Antibody Screen Negative 11/08/18 06:35
[2018-11-09] MEDS ORDERED: Docusate CAP* 100 MG PO PRN (15:34)
[2018-11-09] MEDS ORDERED: Pantoprazole TAB * 40 MG TAB PO PRN (15:35)
[2018-11-09] MEDS ORDERED: OMEPRAZOLE 20 MG PO PRN (16:26)
[2018-11-10] MEDS: Ketorolac INJ* 30 MG/ML 1 ML VIAL IV PUSH PRN (03:01)
[2018-11-10] MEDS: oxyCODONE TAB* 5 MG TAB PO PRN ×2 (03:02→09:41)
[2018-11-10] MEDS: Acetaminophen TAB* 325 MG PO SCH (06:17)
[2018-11-10] MEDS: Lactated Ringers 1000 ML Bag* 1,000 ML IV SCH (06:18)
[2018-11-10 07:29] LABS: Hematocrit 25 % (35-47); Hemoglobin 8.8 g/dl (12.0-16.0); Mean Platelet Volume 7.8 fL (7.4-10.4); Platelet Count 181 10^3/ul (150-450)
[2018-11-10 07:48] VITALS: BP 115/48
[2018-11-10] MEDS: Cetirizine* 10 MG TAB PO SCH (09:43)
[2018-11-10] MEDS: Atorvastatin* 40 MG TAB PO SCH (09:43)
[2018-11-10] MEDS: Vitamin E CAP* 400 UNIT PO SCH (09:43)
[2018-11-10] MEDS: OMEPRAZOLE 20 MG PO SCH (09:43)
[2018-11-10] MEDS: Aspirin TAB* 325 MG PO SCH (09:43)
[2018-11-10] MEDS: Atenolol TAB* 25 MG PO SCH (09:44)
[2018-11-10] MEDS: PTO:Budesonide/Formote 160/4.5(NF) MDI INH SCH (09:44)
[2018-11-10] MEDS: Magnesium Hydroxide LIQ* 30 ML UDC PO SCH (09:46)
--- NOTE | 2018-11-10 09:52 | PN ---
Progress Note - Progress Note Date of Service: 11/10/18 SOAP: Subjective: []Pt seen at bedside, she feels very well and desires DC home. Denies CP, SOB, dizziness or nausea. Objective: []]General: NAD RLE: Right knee dressing changed, incision CDI. Thigh is soft, DF/PF intact, DP2 +, sensation intact to light touch distally. Calves supple and nontender without erythema, edema or palpable cords Assessment: [] POD 2 sp RTK Plan: []WBAT PT/OT ASA 325 qd x 30 days for dvt prophylaxis DC to home Pt seen with Dr Maynard today Vital Signs Temp 97.4 F 11/10/18 07:40 Pulse 85 11/10/18 07:40 Resp 18 11/10/18 09:41 BP 115/48 11/10/18 07:40 Pulse Ox 99 11/10/18 07:40 Intake & Output 11/09/18 11/10/18 11/10/18 18:59 06:59 18:59 Intake Total 1990 1160 210 Output Total 1615 960 225 Balance 375 200 -15 Intake: IV Fluids 1500 990 LR 1000 990 NS (0.9%) 500 IVPB 110 ABX - CLINDAMYCIN 110 Oral 380 170 210 Output: Urine 915 960 225 Emesis 700 Other: Estimated Void Small Small # Voids 1 1 Laboratory Last Values Hgb 8.8 g/dl (12.0-16.0) L 11/10/18 06:55 Hct 25 % (35-47) L 11/10/18 06:55 Plt Count 181 10^3/ul (150-450) 11/10/18 06:55 MPV 7.8 fL (7.4-10.4) 11/10/18 06:55 Sodium 134 mmol/L (135-145) L 11/10/18 06:55 Potassium 4.2 mmol/L (3.5-5.0) 11/09/18 05:58 Chloride 101 mmol/L (101-111) 11/09/18 05:58 Carbon Dioxide 27 mmol/L (22-32) 11/09/18 05:58 Anion Gap 5 mmol/L (2-11) 11/09/18 05:58 BUN 11 mg/dL (6-24) 11/09/18 05:58 Creatinine 0.52 mg/dL (0.51-0.95) 11/09/18 05:58 Est GFR ( Amer) 142.3 (>60) 11/09/18 05:58 Est GFR (Non-Af Amer) 117.6 (>60) 11/09/18 05:58 BUN/Creatinine Ratio 21.2 (8-20) H 11/09/18 05:58 Glucose 131 mg/dL (70-100) H 11/09/18 05:58 Calcium 8.6 mg/dL (8.6-10.3) 11/09/18 05:58 Urine Color Yellow 11/08/18 05:55 Urine Appearance Clear 11/08/18 05:55 Urine pH 6.0 (5-9) 11/08/18 05:55 Ur Specific [place] 1.014 (1.010-1.030) 11/08/18 05:55 Urine Protein Negative (Negative) 11/08/18 05:55 Urine Ketones Negative (Negative) 11/08/18 05:55 Urine Blood Negative (Negative) 11/08/18 05:55 Urine Nitrate Negative (Negative) 11/08/18 05:55 Urine Bilirubin Negative (Negative) 11/08/18 05:55 Urine Urobilinogen Negative (Negative) 11/08/18 05:55 Ur Leukocyte Esterase Negative (Negative) 11/08/18 05:55 Urine WBC (Auto) Trace(0-5/hpf) (Absent) 11/08/18 05:55 Urine RBC (Auto) Absent (Absent) 11/08/18 05:55 Urine Bacteria Absent (Absent) 11/08/18 05:55 Urine Glucose Negative (Negative) 11/08/18 05:55 Blood Type O Positive 11/08/18 06:35 Antibody Screen Negative 11/08/18 06:35
--- NOTE | 2018-11-10 11:05 | DS ---
DISCHARGE SUMMARY: DATE OF ADMISSION: 11/08/18 DATE OF DISCHARGE: 11/10/18 PROVIDER: Dr. Idris Maynard.* (DICTATED BY FILI ELIZALDE) PREOPERATIVE DIAGNOSIS: Severe arthritis of the right knee with varus malalignment. OPERATIVE PROCEDURE: Right total knee arthroplasty. HISTORY: Ms. Mandujano has severe knee arthritis. She has had this for years. It is no longer responsive to nonoperative care and a knee replacement was recommended. HOSPITAL COURSE: The patient was admitted to [facility] on . She underwent a right total knee arthroplasty without complications. On postop day 1, she was well appearing, in no acute distress. She was vomiting, so a scopolamine patch was placed which helped significantly. For pain control , Toradol 30 mg q.6 hours p.r.n. was added. Her dressing was clean, dry, and intact. Drains were removed by Dr. Maynard without complication. She was neurovascularly intact distally. On postop day 2, she was well appearing, in no acute distress. Dressing was changed. Incision was clean, dry, and intact without erythema or discharge. She was deemed to be medically and orthopedically stable for discharge to home. Lab studies include hemoglobin 8.8 , hematocrit 25, sodium 134, potassium 4.2. DISCHARGE MEDICATIONS: 1. Atenolol 25 mg p.o. q.a.m. 2. Aspirin 81 mg p.o. q.a.m. This is to be held until she is done with aspirin 325 mg daily, then resume. 3. Vitamin E 400 units p.o. q.a.m. 4. Clobetasol 1 application daily. 5. Albuterol (Ventolin) 2 puffs inhaled q.6 hours p.r.n. 6. Xanax 0.25 mg p.o. daily p.r.n. 7. Symbicort 160/4.5 two puffs inhaled b.i.d. 8. Stool softener as taken at home. 9. Cetirizine 10 mg p.o. q.a.m. 10. Rvcnfiufqe-zpiijwq-bkczyadc 50-325-40 one tab p.o. once p.r.n. 11. Rosuvastatin 20 mg p.o. daily. 12. Omeprazole 20 mg p.o. daily. 13. Aspirin 325 mg daily for 30 days. 14. Docusate 200 mg p.o. daily p.r.n. constipation. 15. Oxycodone 5 mg 1 to 2 tabs every 4 hours as needed for pain, max of 10 per day. 16. Tylenol 975 every 8 hours as needed for pain or fever. DISCHARGE PLAN: The patient will be discharged to home in stable condition on 11/10/18. Continue hip precautions. Visiting home nurse to remove gregory in 10 to 12 days and do wound checks. Home nurse to draw H and H within 3 days, optimally on 11/11/18, and report to orthopedic office. Aspirin 325 mg daily for 30 days to prevent blood clots. Hold aspirin 81 mg while you are taking this larger dose. Resume 81 mg daily once finished with aspirin 325 daily. Pain control with oxycodone 5 mg 1 to 2 tabs every 4 to 6 hours as needed for pain, max of 10 per day. Follow up with Dr. Maynard in 4 to 6 weeks, sooner with any concern. FILI LI [id number]/[facility] #: [id number] JESSA
[2018-11-12] MEDS ORDERED: Scopolamine PATCH Remove* 1 NOTE MISC PATCH OFF SCH (10:00)
== END 2018-11-10 10:57 | disposition home health service (06) | DRG 470 ==
LOC: AA 05:32 → SSU 10:55
PROVIDERS: ADMIT Orthopaedic Surgery; ATTEND Orthopaedic Surgery
PROC: 0SRC0J9 Replacement of Right Knee Joint with Synthetic Substitute, Cemented, Open Approach (ICD-10-PCS; principal; 2018-11-08 07:30)
DX: M17.11 Unilateral primary osteoarthritis, right knee (principal); E78.2 Mixed hyperlipidemia; I10 Essential (primary) hypertension; I25.9 Chronic ischemic heart disease, unspecified; I25.10 Atherosclerotic heart disease of native coronary artery without angina pectoris; K21.9 Gastro-esophageal reflux disease without esophagitis; F41.1 Generalized anxiety disorder; M21.161 Varus deformity, not elsewhere classified, right knee; M25.761 Osteophyte, right knee; J45.40 Moderate persistent asthma, uncomplicated; G43.909 Migraine, unspecified, not intractable, without status migrainosus; R11.2 Nausea with vomiting, unspecified; Z83.3 Family history of diabetes mellitus; Z82.49 Family history of ischemic heart disease and other diseases of the circulatory system; Z88.0 Allergy status to penicillin; Z88.2 Allergy status to sulfonamides; Z88.8 Allergy status to other drugs, medicaments and biological substances; Z91.040 Latex allergy status; Z82.0 Family history of epilepsy and other diseases of the nervous system; Z90.49 Acquired absence of other specified parts of digestive tract; Z85.820 Personal history of malignant melanoma of skin; Z72.89 Other problems related to lifestyle; Z79.82 Long term (current) use of aspirin
CPT/HCPCS: 36415; 62323; 80048; 81003; 84300; 85014; 85018; 85049; 86850; 86900; 86901; 87086; A9270-GY; C1776; G8978-GP-CK; G8979-GP-CI; G8987-GO-CJ; G8988-GO-CJ; G8989-GO-CJ; J1885; J2250; J2270; J2405; J2704; J3010

== ENCOUNTER 2019-10-25 06:59 | Day surgery (SDC) | payer MEDICARE ==
[~2019-10-25 06:59] MED LIST changes: +Acetaminophen TAB* 325 MG PO PRN; -Tranexamic Acid 1,000 MG in NS 0.9% 50 ML* (outpatient use) IV SCH
[2019-10-25] MEDS ORDERED: Levalbuterol 0.63MG/3ML NEB* UNIT OF USE INH ONE (08:27)
[2019-10-25] MEDS ORDERED: Midazolam* 1 MG/ML 2 ML VIAL (2 MG) ONE ×2 (08:47→09:19)
[2019-10-25] MEDS ORDERED: Neomycin/Polymy/Dex OPTH.SUSP* MAXITROL 0.1% 5 ML ONE (09:19)
[2019-10-25] MEDS ORDERED: Proparacaine 0.5% OPHTH.SOL* 15 ML BTL ONE (09:19)
[2019-10-25] MEDS ORDERED: Lidocaine 1% MPF ** 5 ML VIAL ONE (09:19)
[2019-10-25] MEDS ORDERED: Phenylephrine OPHTH SOL 2.5%* 2 ML ONE (09:19)
[2019-10-25] MEDS ORDERED: Cyclopentolate 1% OPTH.SOL* 2 ML BTL ONE (09:19)
[2019-10-25] MEDS ORDERED: Ketorolac 0.5% OPHTH (NF) 0.5 % 5 ML BTL ONE (09:19)
[2019-10-25] MEDS ORDERED: Povidone Iodine 5% OPTH* 30 ML BTL ONE (09:19)
[2019-10-25] MEDS ORDERED: acetaZOLAMIDE TAB* 250 MG ONE (09:19)
[2019-10-25] MEDS ORDERED: Lidocaine 2% w/ EPI 1:200,000* 20 ML SDV VIAL ONE (09:19)
[2019-10-25 10:04] VITALS: BP 138/63
--- NOTE | 2019-10-25 11:38 | OP ---
DATE OF OPERATION: 10/25/2019. DATE OF : 1950. SURGEON: Guanako Berman M.D. PREOPERATIVE DIAGNOSIS: Cataract right eye. POSTOPERATIVE DIAGNOSIS: Cataract right eye. OPERATIVE PROCEDURE: Extracapsular cataract extraction with intraocular lens implant right eye. PROCEDURE: The patient was brought to the operating room after being given 1/2% Alcaine with epineph rine drops in the preoperative area. The eye was prepped and draped in the usual sterile fashion. S terile drape and eyelid speculum were placed. Again, topical 1/2% Alcaine with epinephrine was given . A paracentesis incision was made at the 9 o'clock position with the No.75 blade. Clear cornea inc ision 2.2 x 2.2-mm was created at the 12 o'clock position starting at the anterior limbus using the 2 .2-mm keratome. The anterior chamber was irrigated with 0.4 mL of 1% non-preservative intracameral l idocaine and filled with DisCoVisc. A capsulorrhexis was completed using the cystotome and the Utrat a forceps. Hydrodissection was performed with balanced salt solution. The lens nucleus was removed w ith the Phacoemulsification handpiece without incident. Cortex was removed with the irrigation-aspir ation handpiece. The capsular bag was re-inflated using DisCoVisc and an [id number] implant was inser darshan with the shooter. The irrigation-aspiration handpiece was used to remove all residual DisCoVisc. The eye was refilled with balanced salt solution and the wound checked and found to be watertight. Topical Maxitrol drops were given. [id number]/[facility] #: [id number]
== END 2019-10-25 09:54 | disposition home or self-care (01) ==
LOC: OREAST 06:59
PROVIDERS: ATTEND Specialist
DX: H25.811 Combined forms of age-related cataract, right eye (principal); E78.2 Mixed hyperlipidemia; F41.9 Anxiety disorder, unspecified; J45.40 Moderate persistent asthma, uncomplicated; K21.9 Gastro-esophageal reflux disease without esophagitis; I10 Essential (primary) hypertension; J30.9 Allergic rhinitis, unspecified; I25.10 Atherosclerotic heart disease of native coronary artery without angina pectoris
CPT/HCPCS: A9270-GY; J2250; V2632

== ENCOUNTER 2019-11-01 07:14 | Day surgery (SDC) | payer MEDICARE ==
[2019-11-01] MEDS ORDERED: Midazolam* 1 MG/ML 5 ML VIAL (5 MG) ONE (08:20)
[2019-11-01] MEDS ORDERED: fentaNYL* 50 MCG/ML 2 ML VIAL (100 MCG VIAL) ONE (08:20)
[2019-11-01] MEDS ORDERED: Povidone Iodine 5% OPTH* 30 ML BTL ONE (09:08)
[2019-11-01] MEDS ORDERED: Phenylephrine OPHTH SOL 2.5%* 2 ML ONE (09:08)
[2019-11-01] MEDS ORDERED: Neomycin/Polymy/Dex OPTH.SUSP* MAXITROL 0.1% 5 ML ONE (09:08)
[2019-11-01] MEDS ORDERED: Ketorolac 0.5% OPHTH (NF) 0.5 % 5 ML BTL ONE (09:08)
[2019-11-01] MEDS ORDERED: Lidocaine 2% w/ EPI 1:200,000* 20 ML SDV VIAL ONE (09:08)
[2019-11-01] MEDS ORDERED: Cyclopentolate 1% OPTH.SOL* 2 ML BTL ONE (09:08)
[2019-11-01] MEDS ORDERED: Proparacaine 0.5% OPHTH.SOL* 15 ML BTL ONE (09:08)
[2019-11-01] MEDS ORDERED: Lidocaine 1% MPF ** 5 ML VIAL ONE (09:08)
[2019-11-01 11:15] VITALS: BP 126/48
--- NOTE | 2019-11-01 12:47 | OP ---
DATE OF OPERATION: 11/01/2019. DATE OF : 1950. SURGEON: Guanako Berman M.D. PREOPERATIVE DIAGNOSIS: Cataract left eye. POSTOPERATIVE DIAGNOSIS: Cataract left eye. OPERATIVE PROCEDURE: Extracapsular cataract extraction with intraocular lens implant left eye. PROCEDURE: The patient was brought to the operating room after being given 1/2% Alcaine with epineph rine drops in the preoperative area. The eye was prepped and draped in the usual sterile fashion. S terile drape and eyelid speculum were placed. Again, topical 1/2% Alcaine with epinephrine was given . A paracentesis incision was made at the 3 o'clock position with the No.75 blade. Clear cornea inc ision 2.2 x 2.2-mm was created at the 6 o'clock position starting at the anterior limbus using the 2. 2-mm keratome. The anterior chamber was irrigated with 0.4 mL of 1% non-preservative intracameral li docaine and filled with DisCoVisc. A capsulorrhexis was completed using the cystotome and the Utrata forceps. Hydrodissection was performed with balanced salt solution. The lens nucleus was removed wi th the Phacoemulsification handpiece without incident. Cortex was removed with the irrigation-aspira tion handpiece. The capsular bag was re-inflated using DisCoVisc and an SN60WF 18.5 implant was inse rted with the shooter. The irrigation-aspiration handpiece was used to remove all residual DisCoVisc . The eye was refilled with balanced salt solution and the wound checked and found to be watertight. Topical Maxitrol drops were given. [id number]/[facility] #: [id number]
== END 2019-11-01 10:22 | disposition home or self-care (01) ==
LOC: OREAST 07:14
PROVIDERS: ATTEND Specialist
DX: H25.812 Combined forms of age-related cataract, left eye (principal); Z88.0 Allergy status to penicillin; Z88.1 Allergy status to other antibiotic agents; I10 Essential (primary) hypertension; E78.00 Pure hypercholesterolemia, unspecified; Z85.820 Personal history of malignant melanoma of skin; J45.909 Unspecified asthma, uncomplicated; K21.9 Gastro-esophageal reflux disease without esophagitis; I25.10 Atherosclerotic heart disease of native coronary artery without angina pectoris
CPT/HCPCS: A9270-GY; J2250; J3010; V2632